=== PATIENT | male | born 1995 | race Caucasian/White ===

== ENCOUNTER 2018-08-30 05:53 | Emergency (ER) | payer OTHER ==
[2018-08-30] MEDS ORDERED: NS 0.9% 1000 ML** 1,000 ML IV ONE ×2 (06:12→09:29)
[2018-08-30] MEDS ORDERED: Ketorolac INJ* 30 MG/ML 1 ML VIAL IV PUSH ONE (06:12)
[2018-08-30] MEDS ORDERED: Dexamethasone IV* 4 MG/ML 1 ML (4 MG) IV SLOW PU ONE (06:12)
[2018-08-30 06:23] LABS: Hematocrit 45 % (42-52); Hemoglobin 15.1 g/dl (14.0-18.0); Mean Corpuscular HGB Conc 34 g/dl (31-36); Mean Corpuscular Hemoglobin 28 pg (27-31); Mean Corpuscular Volume 83 fL (80-94); Mean Platelet Volume 8.3 fL (7.4-10.4); Platelet Count 160 10^3/ul (150-450); Red Blood Count 5.42 10^6/ul (4.00-5.40); Red Cell Distribution Width 14 % (10.5-15); White Blood Count 16.3 10^3/ul (3.5-10.8)
[2018-08-30 06:43] LABS: BUN/Creatinine Ratio 13.5 (8-20); C Reactive Protein 13.95 mg/L (<8.01); Calcium 9.7 mg/dL (8.6-10.3); EGFR African American 101.2 (>60); EGFR Non-African American 83.6 (>60); Potassium 4.4 mmol/L (3.5-5.0); Total Bilirubin 0.5 mg/dL (0.2-1.0)
[2018-08-30] MEDS ORDERED: D5NS 0.9% 1000 ML BAG* 1,000 ML IV SCH (07:00)
[2018-08-30 07:24] LABS: ABS Basophils 0 10^3/ul (0-0.2); ABS Eosinophils 0 10^3/ul (0-0.6); ABS Lymphocytes 9.5 10^3/ul (1.0-4.8); ABS Monocytes 1.9 10^3/ul (0-0.8); ABS Neutrophils 4.8 10^3/ul (1.5-7.7)
[2018-08-30] MEDS ORDERED: Acetaminophen ADULT LIQ* 650 MG/20.3 ML UDC PO ONE (07:25)
[2018-08-30 07:31] LABS: Lymphocytes % 37 %; Monocytes % 8 %; Neutrophil % 30 %; Variant Lymph % 25 % (0-6)
[2018-08-30 07:32] LABS: ABS Neutrophils 4.9 10^3/ul (1.5-7.7)
[2018-08-30 10:11] VITALS: BP 126/72
--- NOTE | 2018-08-30 10:12 | ED ---
Throat Pain/Nasal Congestion - HPI Summary HPI Summary: Patient is an otherwise healthy 22-year-old male presenting to the ED with throat pain 1 week. He was seen at [facility] and was given clindamycin 3 days of prednisone. Todd and strep was obtained. Strep was negative, Monospot was positive. He continues to have worsening dysphagia and odynophagia. Endorses fevers, sweats, chills, difficulty swallowing and enlarged lymph nodes. He's been taking ibuprofen without relief. He has been on steroids 2 days. Denies any drooling, wheezing, hoarseness. - History of Current Complaint Chief Complaint: EDThroatPain Time Seen by Provider: 08/30/18 06:08 Hx Obtained From: Patient Onset/Duration: Gradual Onset Severity: Severe Associated Signs And Symptoms: Positive: Dysphagia. Negative: Negative, Drooling, Wheezing, Hoarseness, Sinus Discomfort, Nasal Discharge - Epiglottits Risk Factors Epiglottis Risk Factors: Negative - Allergies/Home Medications Allergies/Adverse Reactions: Allergies Allergy/AdvReac Type Severity Reaction Status Date / Time No Known Allergies Allergy Verified 08/30/18 05:58 Home Medications: Home Medications Multivitamin [Multiple Vitamins] 1 tab PO DAILY 08/30/18 [History Confirmed ] PMH/Surg Hx/FS Hx/Imm Hx Previously Healthy: Yes Endocrine/Hematology History: Denies: Hx Diabetes Cardiovascular History: Denies: Hx Hypertension, Hx Pacemaker/ICD History: Denies: Hx Renal Disease Sensory History: Denies: Hx Hearing Aid Psychiatric History: Denies: Hx Panic Disorder - Surgical History Surgery Procedure, Year, and Place: EXTRACTED EXTRA TEETH - Immunization History Hx Pertussis Vaccination: No Immunizations Up to Date: Yes Infectious Disease History: No Infectious Disease History: Denies: Traveled Outside the [place] in Last 30 Days - Social History Occupation: Unemployed, Student Lives: With Family Alcohol Use: None Hx Substance Use: No Substance Use Type: Reports: None Hx Tobacco Use: No Smoking Status (MU): Never Smoked Tobacco Review of Systems Constitutional: Negative Negative: Fever, Chills, Fatigue, Skin Diaphoresis Positive: Sore Throat. Negative: Epistaxis, Dental Pain Negative: Palpitations, Chest Pain Negative: Abdominal Pain, Vomiting, Diarrhea, Nausea Negative: Rash, Bruising Negative: Headache, Weakness, Paresthesia Psychological: Normal All Other Systems Reviewed And Are Negative: Yes Physical Exam Triage Information Reviewed: Yes Vital Signs On Initial Exam: Initial Vitals Temp Pulse Resp BP Pulse Ox 102.7 F 137 18 147/99 97 08/30/18 05:54 08/30/18 05:54 08/30/18 05:54 08/30/18 05:54 08/30/18 05:54 Appearance: Positive: Well-Nourished, Ill-Appearing Skin: Positive: Skin Color Reflects Adequate Perfusion, Diaphoretic Eyes: Positive: EOMI, OLIVERIO, Conjunctiva Clear Neck: Positive: Supple, No Lymphadenopathy Respiratory/Lung Sounds: Positive: Clear to Auscultation, Breath Sounds Present Cardiovascular: Positive: Normal, Tachycardia. Negative: Leg Edema Left, Leg Edema Right Musculoskeletal: Positive: Normal, Strength/ROM Intact Neurological: Positive: Sensory/Motor Intact, Speech Normal Psychiatric: Positive: Normal, Affect/Mood Appropriate AVPU Assessment: Alert Diagnostics - Vital Signs Vital Signs Temp Pulse Resp BP Pulse Ox 08/30/18 09:35 97 21 136/75 94 08/30/18 09:00 96 17 95 08/30/18 08:35 20 139/83 08/30/18 08:18 99.8 F 08/30/18 08:05 96 24 138/81 94 08/30/18 08:00 10 08/30/18 07:35 115 26 143/84 94 08/30/18 07:18 101.5 F 08/30/18 07:05 118 21 147/76 95 08/30/18 07:00 119 20 95 08/30/18 06:35 121 29 156/94 94 08/30/18 06:07 122 7 99 08/30/18 06:05 122 154/73 99 08/30/18 05:54 102.7 F 137 18 147/99 97 - Laboratory Lab Results: Lab Results 08/30/18 08/30/18 08/30/18 Range/Units 06:15 06:15 06:15 WBC 16.3 H (3.5-10.8) 10^3/ul RBC 5.42 H (4.00-5.40) 10^6/ul Hgb 15.1 (14.0-18.0) g/dl Hct 45 (42-52) % MCV 83 (80-94) fL MCH 28 (27-31) pg MCHC 34 (31-36) g/dl RDW 14 (10.5-15) % Plt Count 160 (150-450) 10^3/ul MPV 8.3 (7.4-10.4) fL Neut % (Auto) Not Reportable Lymph % (Auto) Not Reportable Todd % (Auto) Not Reportable Eos % (Auto) Not Reportable Baso % (Auto) Not Reportable Absolute Neuts (auto) 4.8 (1.5-7.7) 10^3/ul Absolute Lymphs (auto) 9.5 H (1.0-4.8) 10^3/ul Absolute Monos (auto) 1.9 H (0-0.8) 10^3/ul Absolute Eos (auto) 0 (0-0.6) 10^3/ul Absolute Basos (auto) 0 (0-0.2) 10^3/ul Absolute Nucleated RBC Not Reportable Neutrophils % 30 % Lymphocytes % 37 % Reactive Lymphs % 25 H (0-6) % Monocytes % 8 % Nucleated RBC % Not Reportable Abs Neuts (Manual) 4.9 (1.5-7.7) 10^3/ul Abs Lymphs (Manual) 10.1 H (1.0-4.8) 10^3/ul Abs Monocytes (Manual) 1.3 H (0-0.8) 10^3/ul Normal RBC Morphology Normal (Normal) Hem Pathologist Commnt Pending Sodium 135 (135-145) mmol/L Potassium 4.4 (3.5-5.0) mmol/L Chloride 100 L (101-111) mmol/L Carbon Dioxide 26 (22-32) mmol/L Anion Gap 9 (2-11) mmol/L BUN 15 (6-24) mg/dL Creatinine 1.11 (0.67-1.17) mg/dL Est GFR ( Amer) 101.2 (>60) Est GFR (Non-Af Amer) 83.6 (>60) BUN/Creatinine Ratio 13.5 (8-20) Glucose 88 (70-100) mg/dL Lactic Acid 1.6 (0.5-2.0) mmol/L Calcium 9.7 (8.6-10.3) mg/dL Total Bilirubin 0.50 (0.2-1.0) mg/dL AST 96 H (13-39) U/L ALT 244 H (7-52) U/L Alkaline Phosphatase 110 H (34-104) U/L C-Reactive Protein 13.95 H (<8.01) mg/L Total Protein 8.0 (6.4-8.9) g/dL Albumin 4.0 (3.2-5.2) g/dL Globulin 4.0 (2-4) g/dL Albumin/Globulin Ratio 1.0 (1-3) Monoscreen Negative (Negative) Group A Strep Rapid (Negative) 08/30/18 Range/Units 06:30 WBC (3.5-10.8) 10^3/ul RBC (4.00-5.40) 10^6/ul Hgb (14.0-18.0) g/dl Hct (42-52) % MCV (80-94) fL MCH (27-31) pg MCHC (31-36) g/dl RDW (10.5-15) % Plt Count (150-450) 10^3/ul MPV (7.4-10.4) fL Neut % (Auto) Lymph % (Auto) Todd % (Auto) Eos % (Auto) Baso % (Auto) Absolute Neuts (auto) (1.5-7.7) 10^3/ul Absolute Lymphs (auto) (1.0-4.8) 10^3/ul Absolute Monos (auto) (0-0.8) 10^3/ul Absolute Eos (auto) (0-0.6) 10^3/ul Absolute Basos (auto) (0-0.2) 10^3/ul Absolute Nucleated RBC Neutrophils % % Lymphocytes % % Reactive Lymphs % (0-6) % Monocytes % % Nucleated RBC % Abs Neuts (Manual) (1.5-7.7) 10^3/ul Abs Lymphs (Manual) (1.0-4.8) 10^3/ul Abs Monocytes (Manual) (0-0.8) 10^3/ul Normal RBC Morphology (Normal) Hem Pathologist Commnt Sodium (135-145) mmol/L Potassium (3.5-5.0) mmol/L Chloride (101-111) mmol/L Carbon Dioxide (22-32) mmol/L Anion Gap (2-11) mmol/L BUN (6-24) mg/dL Creatinine (0.67-1.17) mg/dL Est GFR ( Amer) (>60) Est GFR (Non-Af Amer) (>60) BUN/Creatinine Ratio (8-20) Glucose (70-100) mg/dL Lactic Acid (0.5-2.0) mmol/L Calcium (8.6-10.3) mg/dL Total Bilirubin (0.2-1.0) mg/dL AST (13-39) U/L ALT (7-52) U/L Alkaline Phosphatase (34-104) U/L C-Reactive Protein (<8.01) mg/L Total Protein (6.4-8.9) g/dL Albumin (3.2-5.2) g/dL Globulin (2-4) g/dL Albumin/Globulin Ratio (1-3) Monoscreen (Negative) Group A Strep Rapid Negative (Negative) Result Diagrams: 08/30/18 06:15 08/30/18 06:15 Lab Statement: Any lab studies that have been ordered have been reviewed, and results considered in the medical decision making process. EENT Course/Dx - Course Course Of Treatment: During the course treatment, the patient is evaluated for dysphagia and odynophagia with diffuse lymphadenopathy. He endorses fevers highest 103.1 at home including sweats and chills. Monospot was positive, strep was negative. He continues to have difficulty swallowing and endorses odynophagia as well. Continues to drink, however decreased eating. He has been unable to sleep due to pain. On physical exam, there is diffuse lymphadenopathy to the superficial cervical, occipital, posterior auricular and enlarged tonsillar and submandibular LAD. He is diaphoretic and pale. He also has some mental lymphadenopathy. Tongue and lips without swelling. TMs normal without erythema or drainage. Positive cone of light. EOMI, but conjunctiva is glossy throughout. Lungs CTA. regular rhythm but tachy at 125-135. Respirations at 35. While he meets septic protocol - it was understood that patient had mono with viral pharyngitis. Fluids 2L NS and 1L D5NS given including Toradol 30 mg, Tylenol 650 mg and Decadron 16 mg. Recheck vital signs and tachycardia at 115, respirations decreased to 18, patient is feeling much improved, BP remains stable and afebrile at 99.1. Discussed treatment options with patient and he states he would like to be discharged at this time as he has a close follow-up to [facility]. He appears well at this time, non-diaphoretic and VS stable. - Differential Diagnoses Differential Diagnoses: Other - Todd, strep, viral pharyngitis, tonsillitis, pharyngeal abscess - Diagnoses Provider Diagnoses: Viral pharyngitis, Tonsillitis, Lymphadenopathy Discharge - Sign-Out/Discharge Documenting (check all that apply): Patient Departure Patient Received Moderate/Deep Sedation with Procedure: No - Discharge Plan Condition: Stable Disposition: HOME Prescriptions: Ketorolac TAB * [Toradol TAB *] 10 mg PO Q6H #16 tab predniSONE TAB* [Deltasone TAB*] 50 mg PO DAILY #5 tab MDD 1 Patient Education Materials: Tonsillitis (ED) Referrals: Marixa Joseph MD [Primary Care Provider] - Additional Instructions: Your next dose of Toradol is at 11 AM Do not take NSAIDs while taking this medication You may take this up to 4 times daily for pain and discomfort Intermittently used Tylenol 650 mg 4 times daily for discomfort and inflammation Prednisone once daily in the morning 5 days Drink plenty of fluids including Gatorade Follow up with [facility] as scheduled - Billing Disposition and Condition Condition: STABLE Disposition: Home
== END 2018-08-30 10:28 | disposition home or self-care (01) ==
LOC: ED 05:53
DX: J02.9 Acute pharyngitis, unspecified (principal); J03.90 Acute tonsillitis, unspecified; R59.1 Generalized enlarged lymph nodes
CPT/HCPCS: 36415; 80053; 83605; 85025; 85060; 86140; 86308; 87070; 87651; 96361; 96374; 96375; 99283; A9270-GY; J1100; J1885